=== PATIENT | male | born 1970 | race American Indian/Alaskan Native ===

== ENCOUNTER 2018-06-19 17:53 | Emergency (ER) | payer SELFPAY ==
--- NOTE | 2018-06-19 18:10 | Emergency Department Report ---
HPI - General Chief Complaint: Dizziness Time Seen by Provider: 06/19/18 18:05 - HPI HPI: Room 1 The patient is a 48-year-old male presented with a chief complaint of dizziness. The patient states he was sitting down and upon standing he began to feel dizzy and hot. The patient had a near syncopal episode but never actually lost consciousness. Patient states he never had any chest pain pressure or tightness or discomfort. EMS was called and the patient was initially found to be hypotensive with a systolic and 80s. Upon arrival to the ED the patient had a systolic blood pressure of 103. EMS was unable to transmit the EKG prior to arrival but stated revealed ST segment elevation. Subsequently this code STEMI was called prior to patient's arrival Location: [See above] Duration: [See above] Quality: [See above] Severity: [See above] Modifying factors: [see above] Context: [see above] Mode of transportation: [not driving] ED Past Medical Hx - Past Medical History Previous Medical History?: No - Surgical History Past Surgical History?: No - Family History Family history: no significant - Social History Smoking Status: Current Every Day Smoker (1 pack per day) Substance Use Type: None - Medications Home Medications: Home Medications Medication Instructions Recorded Confirmed Last Taken Type Meclizine [Antivert] 25 mg PO TID PRN #20 tablet 06/20/18 Unknown Rx ED Review of Systems ROS: Stated complaint: CARDIAC ARREST Other details as noted in HPI Constitutional: no symptoms reported Eyes: denies: eye pain ENT: denies: throat pain Respiratory: shortness of breath Cardiovascular: denies: chest pain Endocrine: no symptoms reported Gastrointestinal: nausea. denies: abdominal pain Genitourinary: denies: dysuria Musculoskeletal: denies: back pain Neurological: other (dizziness). denies: headache Physical Exam - Physical Exam Vital Signs: Vital Signs 06/19/18 06/19/18 17:56 18:00 Temperature 97.6 F Pulse Rate 71 Respiratory 14 14 Rate O2 Sat by Pulse 99 99 Oximetry Vital Signs 06/19/18 06/19/18 06/19/18 17:48 17:56 18:00 Temperature 97.6 F Pulse Rate 71 Respiratory 14 14 Rate Blood Pressure Blood Pressure [Left] O2 Sat by Pulse 99 99 99 Oximetry 07/30/18 07/30/18 07/30/18 18:04 18:15 20:01 Temperature Pulse Rate 63 60 66 Respiratory 18 17 13 Rate Blood Pressure 100/60 112/89 Blood Pressure [Left] O2 Sat by Pulse 100 100 100 Oximetry 06/19/18 06/19/18 06/19/18 20:09 20:31 22:31 Temperature 97.7 F Pulse Rate 61 61 Respiratory 17 14 Rate Blood Pressure 115/69 104/71 Blood Pressure 112/89 [Left] O2 Sat by Pulse 100 100 99 Oximetry 06/19/18 06/19/18 23:01 23:31 Temperature Pulse Rate Respiratory Rate Blood Pressure 104/63 101/61 Blood Pressure [Left] O2 Sat by Pulse 99 99 Oximetry Physical Exam: GENERAL: The patient is well-developed well-nourished male lying on stretcher not appearing to be in acute distress. [] HEENT: Normocephalic. Atraumatic. Extraocular motions are intact. Patient has moist mucous membranes. NECK: Supple. Trachea midline CHEST/LUNGS: Clear to auscultation. There is no respiratory distress noted. HEART/CARDIOVASCULAR: Regular. There is no tachycardia. There is no gallop rub or murmur. ABDOMEN: Abdomen is soft, nontender. Patient has normal bowel sounds. There is no abdominal distention. SKIN: There is no rash. There is no edema. There is no diaphoresis. NEURO: The patient is awake, alert, and oriented. The patient is cooperative. The patient has no focal neurologic deficits. The patient has normal speech. Cranial nerves II through XII grossly intact, no drift. Moves all extremities well MUSCULOSKELETAL: There is no evidence of acute injury. ED Course Vital Signs 06/19/18 06/19/18 17:56 18:00 Temperature 97.6 F Pulse Rate 71 Respiratory 14 14 Rate O2 Sat by Pulse 99 99 Oximetry - Consultations Consultation #1: 06/19/18 17:43 EMS EKG sent to Dr. Jacobson- early repolarization ED EKG sent to Dr. Jacobson- early repolarization. Cancel code STEMI Consultation #2: 06/20/18 02:00 pt feels improved. Asymptomatic. ED Medical Decision Making - Lab Data Result diagrams: 06/19/18 18:23 06/19/18 18:23 Laboratory Tests 06/19/18 06/19/18 06/19/18 18:23 18:23 18:23 WBC 9.8 RBC 4.18 Hgb 13.2 Hct 37.5 MCV 90 MCH 32 MCHC 35 H RDW 15.5 H Plt Count 189 Lymph % (Auto) Product Marketing Manager Lymph # Product Marketing Manager Add Manual Diff Complete Total Counted 100 Seg Neuts % (Manual) 34.0 L Band Neutrophils % 0 Lymphocytes % (Manual) 58.0 H Reactive Lymphs % (Man) 0 Monocytes % (Manual) 8.0 H Eosinophils % (Manual) 0 Basophils % (Manual) 0 Metamyelocytes % 0 Myelocytes % 0 Promyelocytes % 0 Blast Cells % 0 Nucleated RBC % Not Reportable Seg Neutrophils # Man 3.3 Band Neutrophils # 0.0 Lymphocytes # (Manual) 5.7 H Abs React Lymphs (Man) 0.0 Monocytes # (Manual) 0.8 Eosinophils # (Manual) 0.0 Basophils # (Manual) 0.0 Metamyelocytes # 0.0 Myelocytes # 0.0 Promyelocytes # 0.0 Blast Cells # 0.0 WBC Morphology Not Reportable Hypersegmented Neuts Not Reportable Hyposegmented Neuts Not Reportable Hypogranular Neuts Not Reportable Smudge Cells Not Reportable Toxic Granulation Not Reportable Toxic Vacuolation Not Reportable Dohle Bodies Not Reportable Pelger-Huet Anomaly Not Reportable Librado Rods Not Reportable Platelet Estimate Not Reportable Clumped Platelets Not Reportable Plt Clumps, EDTA Not Reportable Large Platelets Not Reportable Giant Platelets Not Reportable Platelet Satelliting Not Reportable Plt Morphology Comment Not Reportable RBC Morphology Normal Dimorphic RBCs Not Reportable Polychromasia Not Reportable Hypochromasia Not Reportable Poikilocytosis Not Reportable Anisocytosis Not Reportable Microcytosis Not Reportable Macrocytosis Not Reportable Spherocytes Not Reportable Pappenheimer Bodies Not Reportable Sickle Cells Not Reportable Target Cells Not Reportable Tear Drop Cells Not Reportable Ovalocytes Not Reportable Helmet Cells Not Reportable Richard-Mehan Bodies Not Reportable Sevier Rings Not Reportable [place] Cells Not Reportable Bite Cells Not Reportable Crenated Cell Not Reportable Elliptocytes Not Reportable Acanthocytes (Spur) Not Reportable Rouleaux Not Reportable Hemoglobin C Crystals Not Reportable Schistocytes Not Reportable Malaria parasites Not Reportable Ignacio Bodies Not Reportable Hem Pathologist Commnt No D-Dimer 554.63 H Sodium 137 Potassium 5.0 Chloride 102.3 Carbon Dioxide 21 L Anion Gap 19 BUN 17 Creatinine 1.6 H Estimated GFR 56 BUN/Creatinine Ratio 11 Glucose 109 H Calcium 8.9 Total Bilirubin 0.50 AST 35 ALT 31 Alkaline Phosphatase 28 L Total Creatine Kinase 243 H CK-MB (CK-2) 1.5 CK-MB (CK-2) Rel Index 0.6 Troponin T Total Protein 6.7 Albumin 3.8 L Albumin/Globulin Ratio 1.3 TSH Free T4 Plasma/Serum Alcohol 06/19/18 06/19/18 06/19/18 18:23 18:23 18:23 WBC RBC Hgb Hct MCV MCH MCHC RDW Plt Count Lymph % (Auto) Lymph # Add Manual Diff Total Counted Seg Neuts % (Manual) Band Neutrophils % Lymphocytes % (Manual) Reactive Lymphs % (Man) Monocytes % (Manual) Eosinophils % (Manual) Basophils % (Manual) Metamyelocytes % Myelocytes % Promyelocytes % Blast Cells % Nucleated RBC % Seg Neutrophils # Man Band Neutrophils # Lymphocytes # (Manual) Abs React Lymphs (Man) Monocytes # (Manual) Eosinophils # (Manual) Basophils # (Manual) Metamyelocytes # Myelocytes # Promyelocytes # Blast Cells # WBC Morphology Hypersegmented Neuts Hyposegmented Neuts Hypogranular Neuts Smudge Cells Toxic Granulation Toxic Vacuolation Dohle Bodies Pelger-Huet Anomaly Librado Rods Platelet Estimate Clumped Platelets Plt Clumps, EDTA Large Platelets Giant Platelets Platelet Satelliting Plt Morphology Comment RBC Morphology Dimorphic RBCs Polychromasia Hypochromasia Poikilocytosis Anisocytosis Microcytosis Macrocytosis Spherocytes Pappenheimer Bodies Sickle Cells Target Cells Tear Drop Cells Ovalocytes Helmet Cells Richard-Mehan Bodies Sevier Rings Steven Cells Bite Cells Crenated Cell Elliptocytes Acanthocytes (Spur) Rouleaux Hemoglobin C Crystals Schistocytes Malaria parasites Ignacio Bodies Hem Pathologist Commnt D-Dimer Sodium Potassium Chloride Carbon Dioxide Anion Gap BUN Creatinine Estimated GFR BUN/Creatinine Ratio Glucose Calcium Total Bilirubin AST ALT Alkaline Phosphatase Total Creatine Kinase CK-MB (CK-2) CK-MB (CK-2) Rel Index Troponin T < 0.010 Total Protein Albumin Albumin/Globulin Ratio TSH 1.120 Free T4 1.15 Plasma/Serum Alcohol < 0.01 - EKG Data -: EKG Interpreted by Me EKG shows normal: sinus rhythm Rate: normal - EKG Data Interpretation: nonspecific ST-T wave angel (ST elevation in leads 1, aVL, V2, V3 , V4, V5, V6) - Radiology Data Radiology results: report reviewed (CT head, VQ scan), image reviewed (CT head, chest x-ray, VQ scan) interpreted by me: Chest x-ray-no definite focal infiltrates, no pneumothorax [address] [address] Cat Scan Report Signed Patient: KARINA HAEDLEY MR#: [id number] : 1970 Acct:[id number] Age/Sex: 48 / M ADM Date: 06/19/18 Loc: ED Attending Dr: Ordering Physician: SANTY REYES MD Date of Service: 06/19/18 Procedure(s): CT head/brain wo con Accession Number(s): [id number] cc: SANTY REYES MD FINAL REPORT PROCEDURE: CT HEAD/BRAIN WO CON TECHNIQUE: Computerized tomography of the head was performed without contrast material. HISTORY: dizziness COMPARISON: No prior studies are available for comparison. FINDINGS: There is no CT evidence of intracranial mass, hemorrhage, acute territorial infarction, or hydrocephalus. Intracranial arteries are symmetric in density. Calvarium is intact. Visualized paranasal sinuses and mastoids are aerated. IMPRESSION: No CT evidence of acute intracranial abnormality Transcribed By: [facility] Dictated By: KRISS IRAHETA M.D. Electronically Authenticated By: KRISS IRAHETA M.D. Signed Date/Time: 06/19/181929 DD/ 29 TD/TT: 06/19/181929 [address] [address] Nuclear Medicine Report Signed Patient: KARINA HEADLEY MR#: [id number] : 1970 Acct:[id number] Age/Sex: 48 / M ADM Date: 06/19/18 Loc: ED Attending Dr: Ordering Physician: SANTY REYES MD Date of Service: 06/19/18 Procedure(s): NM lung scan perf/vent Accession Number(s): [id number] cc: SANTY REYES MD FINAL REPORT PROCEDURE: NM LUNG SCAN PERF/VENT TECHNIQUE: Five mCi Tc-99m MAA was injected IV for pulmonary perfusion imaging in multiple projections. Fifteen mCi xenon 133 was inhaled for pulmonary ventilation imaging in multiple projections. Injection site:. CPT 24987 REGULATORY GUIDELINES: The patient was released based upon guidelines established in [place] State Regulations for Protection Against Radiation, Chapter 2221-58-51-35, Release of Individuals Containing Radioactive Drugs or Implants. HISTORY: dizziness COMPARISON: Chest radiograph 06/19/2018 FINDINGS: Perfusion: Small segmental perfusion defects are noted involving superior segment right lower lobe and lateral segment left lower lobe. Ventilation: No defects . IMPRESSION: According to modified PIOPED criteria findings are consistent with low probability for pulmonary embolism. Transcribed By: [facility] Dictated By: PORTILLO WORKMAN Electronically Authenticated By: PORTILLO WORKMAN Signed Date/Time: 06/19/182139 DD/ 39 TD/TT: 06/19/182139 - Differential Diagnosis ACS, ICH, vertigo, symptomatic anemia Critical care attestation.: If time is entered above; I have spent that time in minutes in the direct care of this critically ill patient, excluding procedure time. ED Disposition Clinical Impression: Dehydration, Dizziness, Renal insufficiency Disposition: DC-01 TO HOME OR SELFCARE Is pt being admited?: No Does the pt Need Aspirin: No Condition: Stable Instructions: Dehydration (ED), Impaired Kidney Function (ED), Dizziness (ED) Additional Instructions: Return to the emergency dept should you develop any other concerns or symptoms. Prescriptions: Meclizine [Antivert] 25 mg PO TID PRN #20 tablet PRN Reason: Vertigo Referrals: [facility] [Outside] - 3-5 Days EMA TREVIZO MD [Staff Physician] - [facility] (Please follow up with Dr Trevizo to be established as a patient) Time of Disposition: 02:00
[2018-06-19 18:52] LABS: Hematocrit 37.5 % (35.5-45.6); Hemoglobin 13.2 gm/dl (11.8-15.2); Mean Corpuscular HGB Conc 35 % (32-34); Mean Corpuscular Hemoglobin 32 pg (28-32); Mean Corpuscular Volume 90 fl (84-94); Platelet Count 189 K/mm3 (140-440); Red Blood Count 4.18 M/mm3 (3.65-5.03); Red Cell Distribution Width 15.5 % (13.2-15.2)
[2018-06-19 19:15] LABS: Creatine Kinase MB 1.5 ng/mL (0.0-4.0)
[2018-06-19 19:17] LABS: Albumin 3.8 g/dL (3.9-5); Calcium 8.9 mg/dL (8.4-10.2)
[2018-06-19 19:22] LABS: Free T4 (Free Thyroxine) 1.15 ng/dL (0.76-1.46)
--- NOTE | 2018-06-19 19:37 | Cat Scan Report ---
FINAL REPORT PROCEDURE: CT HEAD/BRAIN WO CON TECHNIQUE: Computerized tomography of the head was performed without contrast material. HISTORY: dizziness COMPARISON: No prior studies are available for comparison. FINDINGS: There is no CT evidence of intracranial mass, hemorrhage, acute territorial infarction, or hydrocephalus. Intracranial arteries are symmetric in density. Calvarium is intact. Visualized paranasal sinuses and mastoids are aerated. IMPRESSION: No CT evidence of acute intracranial abnormality
[2018-06-19 20:12] LABS: Basophils % (Manual) 0 % (0.0-1.8); Eosinophils % (Manual) 0 % (0.0-4.3); RBC Morphology Normal; Total Cells Counted 100
--- NOTE | 2018-06-19 21:47 | Nuclear Medicine Report ---
FINAL REPORT PROCEDURE: NM LUNG SCAN PERF/VENT TECHNIQUE: Five mCi Tc-99m MAA was injected IV for pulmonary perfusion imaging in multiple projections. Fifteen mCi xenon 133 was inhaled for pulmonary ventilation imaging in multiple projections. Injection site:. CPT 38649 REGULATORY GUIDELINES: The patient was released based upon guidelines established in [place] State Regulations for Protection Against Radiation, Chapter 1199-12-28-35, Release of Individuals Containing Radioactive Drugs or Implants. HISTORY: dizziness COMPARISON: Chest radiograph 06/19/2018 FINDINGS: Perfusion: Small segmental perfusion defects are noted involving superior segment right lower lobe and lateral segment left lower lobe. Ventilation: No defects . IMPRESSION: According to modified PIOPED criteria findings are consistent with low probability for pulmonary embolism.
--- NOTE | 2018-06-19 21:52 | XRay Report ---
FINAL REPORT PROCEDURE: XR CHEST 1V AP TECHNIQUE: Chest radiograph anteroposterior view. CPT 52095 HISTORY: dizziness, shortness of breath COMPARISON: No prior studies are available for comparison. FINDINGS: Heart: Normal. Mediastinum/Vessels: Normal. Lungs/Pleural space: No infiltrate, effusion, or pneumothorax is seen. Bony thorax: No acute osseous abnormality. Life support devices: None. IMPRESSION: No radiographic evidence of acute cardiopulmonary abnormality.
[2018-06-19] MEDS ORDERED: ANTIVERT PO ONE (22:15)
[2018-06-19 23:39] VITALS: BP 101/61
[2018-06-20] MEDS ORDERED: NACL 0.9% 1000 ML 1,000 ML IV ONE ×2 (00:03)
== END 2018-06-20 02:00 | disposition home or self-care (01) ==
LOC: ED 17:53
DX: E86.0 Dehydration (principal); R42 Dizziness and giddiness; N28.9 Disorder of kidney and ureter, unspecified; F17.210 Nicotine dependence, cigarettes, uncomplicated
CPT/HCPCS: 36415; 70450; 71045; 78582; 80053; 82550; 82553; 84439; 84443; 84484; 85007; 85025; 85379; 93005; 93010; 96360; 96361; 99285; A9540; A9558; G0480; J7030; 80320

== ENCOUNTER 2021-10-27 17:03 | Emergency (ER) | payer OTHER ==
[2021-10-27 17:18] VITALS: BP 132/80
[2021-10-27] MEDS ORDERED: ACETAMINOPHEN 325 MG TAB PO ONE (20:34)
[2021-10-27] MEDS ORDERED: METOCLOPRAMIDE 10 MG TAB PO ONE (20:34)
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
--- NOTE | 2021-10-29 10:24 | Electrocardiograph Report ---
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
== END 2021-10-27 22:54 | disposition home or self-care (01) ==
LOC: ED 17:03
DX: S09.8XXA Other specified injuries of head, initial encounter (principal); R55 Syncope and collapse; F17.290 Nicotine dependence, other tobacco product, uncomplicated; V89.2XXA Person injured in unspecified motor-vehicle accident, traffic, initial encounter; Y93.89 Activity, other specified; Y92.488 Other paved roadways as the place of occurrence of the external cause; Y99.8 Other external cause status; Z86.718 Personal history of other venous thrombosis and embolism; Z79.899 Other long term (current) drug therapy
CPT/HCPCS: 70450; 71046; 93005; 99284